=== PATIENT | female | born 1970 | race Caucasian/White ===

== ENCOUNTER 2019-09-14 08:16 | Emergency (ER) | payer BC, OTHER ==
[~2019-09-14] VITALS: Ht 165.1 cm; Wt 82.1 kg
--- NOTE | 2019-09-14 08:44 | NUR ---
PATIENT BROUGHT BACK FROM TRIAGE WITH CHIEF COMPLAINT OF INTERMITTENT RASH AND SWELLING OF UPPER FACE & EYES. PATIENT DENIES SOB, DIFFICULTY BREATHING, CP, N/V.
[2019-09-14 09:15] VITALS: BP 101/61
--- NOTE | 2019-09-14 09:18 | NUR ---
KERRI SINGH AT BEDSIDE FOR EVALUATION
== END 2019-09-14 09:37 | disposition home or self-care (01) ==
LOC: ED 09:06
DX: L50.9 Urticaria, unspecified (principal); E78.5 Hyperlipidemia, unspecified; K21.9 Gastro-esophageal reflux disease without esophagitis
CPT/HCPCS: 99283; J7512